=== PATIENT | female | born 1970 | race Caucasian/White ===

== ENCOUNTER 2025-07-01 06:16 | Day surgery (SDC) | payer OTHER, SELFPAY | END 2025-07-01 12:27 | disposition home or self-care (01) | LOC: GI 06:16 | PROVIDERS: ATTENDING PHYSICIAN Internal Medicine | DX: R19.7 Diarrhea, unspecified (principal); Z98.84 Bariatric surgery status | CPT/HCPCS: 43239; 88305; 88342 ==

== ENCOUNTER → 2025-08-02 11:45 | Outpatient (REF) | payer OTHER, SELFPAY | LOC: RAD 11:45 | PROVIDERS: ATTENDING PHYSICIAN Nurse Practitioner; FAMILY PHYSICIAN Family Medicine | DX: K52.9 Noninfective gastroenteritis and colitis, unspecified (principal); R63.4 Abnormal weight loss; K90.49 Malabsorption due to intolerance, not elsewhere classified | CPT/HCPCS: 74177; Q9967 ==